=== PATIENT | female | born 1960 | race Caucasian/White ===

== ENCOUNTER 2016-10-19 15:41 | Emergency (ER) | payer OTHER ==
[~2016-10-19] VITALS: Wt 61.8 kg
[~2016-10-19 15:41] MED LIST: GABAPENTIN PO; VITAMIN B6; VITAMIN C; ZOLOFT
[2016-10-19] MEDS ORDERED: CIPR7.5D4 RIGHT EYE (16:35)
--- NOTE | 2016-10-19 16:46 | ERD ---
ER Documentation Chief Complaint Date/Time DATE: 10/19/16 TIME: 16:36 Chief Complaint r. eye redness, swollen HPI 55-year-old female with a history of liver cirrhosis presents the emergency department for complaints of right-sided eye pain 3 days. Patient states she initially felt a bump to the right upper eyelid which gradually became erythematous and swollen. Patient denies any discharge, change in vision, crusting, fever, chills, nausea, vomiting, headache. She reports a sharp 8 out of 10 pain worse with pressure to the area which is constant and improved slightly with warm compress and Motrin. She denies any recent illness. ROS All systems reviewed and are negative except as per history of present illness. Medications Home Meds Active Scripts Ciprofloxacin Hcl/Dexameth (Ciprodex Otic Suspension) 7.5 Ml Drops.susp, 4 DROP RIGHT EYE BID for 7 Days, EA Prov:RENAN CLAY PA-C 10/19/16 Reported Medications [Vitamin C] No Conflict Check 11/13/15 [Zoloft] No Conflict Check 11/13/15 [Vitamin B6] No Conflict Check 11/13/15 [Gabapentin] No Conflict Check, 100 MG PO 11/13/15 Allergies Allergies: Coded Allergies: No Known Allergy (Unverified , 07/14/13) PMhx/Soc History of Surgery: Yes (HYSTERECTOMY) Anesthesia Reaction: No Hx Neurological Disorder: No Hx Respiratory Disorders: No Hx Cardiac Disorders: No Hx Psychiatric Problems: No Hx Miscellaneous Medical Probl: Yes (hepatitis C, cirrhosis of liver, portal HTN) Hx Alcohol Use: No Hx Substance Use: No Hx Tobacco Use: Yes (2 CIGARETTES PER DAY) Smoking Status: Current every day smoker Physical Exam Vitals Vital Signs Date Time Temp Pulse Resp B/P Pulse Ox O2 Delivery O2 Flow Rate FiO2 10/19/16 15:45 98.1 73 20 127/80 98 Physical Exam Const: Well-developed, well-nourished, no acute distress Head: Atraumatic Eyes: Right-sided upper eyelid swelling and erythema with tenderness to palpation. 0.5 cm well-circumscribed area of swelling located on the lateral inner upper eyelid. no orbital erythema. No proptosis. EOMs intact. PERRLA. No discharge. Mild periorbital erythema without swelling. ENT: Normal External Ears, Nose and Mouth. Neck: Full range of motion..~ No meningismus. Resp: Clear to auscultation bilaterally Cardio: Regular rate and rhythm, no murmurs Skin: No petechiae or rashes Neur: Awake and alert Psych: Normal Mood and Affect Procedures/MDM This is a 55-year-old female with a history of liver cirrhosis who presents for a 3 day history of right upper eyelid pain, erythema, and swelling. Patient without complaint of vision changes, discharge, fever, headache, nausea or vomiting. Vital signs reviewed. Patient afebrile, normotensive and non- hypoxic upon arrival. Patient well-appearing, well-nourished, and nontoxic. Physical exam with evidence of swelling along the right inner upper eyelid, consistent with a right upper eyelid hordeolum. Low suspicion for orbital or periorbital cellulitis at this time. Low suspicion for ulceration or abrasion of the cornea. Patient to continue warm compress and will be provided with an antibacterial and anti-inflammatory eyedrops. Patient to follow-up with facialist if symptoms do not subside. Based on patient's history of present illness and physical examination the decision was made to discharge. There is no evidence of life threatening injuries or illnesses at this time. Patient resting in no distress, stable vital signs, reports feeling better and safe for discharge with outpatient follow up with PMD in 1-2 days. Patient given return precautions. Departure Diagnosis: Primary Impression: Swelling of right eyelid Additional Impressions: Sty, internal Laterality: right Eyelid: upper Qualified Code: H00.021 - Hordeolum internum of right upper eyelid Pain, eye, right Condition: Good Patient Instructions: Remington Padilla Additional Instructions: Call your primary care doctor TOMORROW for an appointment during the next 1-2 days.See the doctor sooner or return here if your condition worsens before your appointment time. RENAN CLAY PA-C Oct 19, 2016 16:45
== END 2016-10-19 17:21 | disposition home or self-care (01) ==
LOC: FTE 15:41
DX: H00.021 Hordeolum internum right upper eyelid (principal); F17.210 Nicotine dependence, cigarettes, uncomplicated
CPT/HCPCS: 99283

== ENCOUNTER 2017-01-23 10:03 | Emergency (ER) | payer OTHER ==
[~2017-01-23] VITALS: Ht 152.4 cm; Wt 67.0 kg
[~2017-01-23 10:03] MED LIST changes: +CIPR7.5D4 RIGHT EYE
[2017-01-23 10:04] VITALS: Ht 152.4 cm; Wt 67.0 kg
[2017-01-23] MEDS ORDERED: ALBUTEROL 0.083% (NEB) 2.5 MG/3 ML AMP HHN STA (10:48)
[2017-01-23] MEDS ORDERED: ALBU18HF INHALATION (11:10)
[2017-01-23] MEDS ORDERED: AZIT250T94 PO (11:10)
--- NOTE | 2017-01-23 11:24 | ERD ---
ER Documentation Chief Complaint Date/Time DATE: 01/23/17 TIME: 11:11 Chief Complaint cough x 3 weeks HPI This 56-year-old female presents with her intermittently productive cough for last 3 weeks. She may have it fevers over the last week. She denies chest pain , shortness breath, vomiting. She has had similar episodes in the past and is requesting an inhaler. ROS All systems reviewed and are negative except as per history of present illness. Medications Home Meds Active Scripts Albuterol Sulfate* (Ventolin HFA*) 18 Gm Hfa.aer.ad, 2 PUFF INHALATION Q4H, #1 INHALER Prov:MARY TREJO MD 01/23/17 Azithromycin* (Zithromax*) 250 Mg Tablet, 250 MG PO .ZPACK DIRECTED, #6 TAB TAKE 500 MG (2 TABS) THE FIRST DAY THEN 250 MG (1 TAB) DAYS 2-5 Prov:MARY TREJO MD 01/23/17 Ciprofloxacin Hcl/Dexameth (Ciprodex Otic Suspension) 7.5 Ml Drops.susp, 4 DROP RIGHT EYE BID for 7 Days, EA Prov:RENAN CLAY PA-C 10/19/16 Reported Medications [Vitamin C] No Conflict Check 11/13/15 [Zoloft] No Conflict Check 11/13/15 [Vitamin B6] No Conflict Check 11/13/15 [Gabapentin] No Conflict Check, 100 MG PO 11/13/15 Allergies Allergies: Coded Allergies: No Known Allergy (Unverified , 07/14/13) PMhx/Soc History of Surgery: Yes (HYSTERECTOMY) Anesthesia Reaction: No Hx Neurological Disorder: No Hx Respiratory Disorders: No Hx Cardiac Disorders: No Hx Psychiatric Problems: No Hx Miscellaneous Medical Probl: Yes (hepatitis C, cirrhosis of liver, portal HTN) Hx Alcohol Use: No Hx Substance Use: No Hx Tobacco Use: Yes (2 CIGARETTES PER DAY) Smoking Status: Current every day smoker Physical Exam Vitals Vital Signs Date Time Temp Pulse Resp B/P Pulse Ox O2 Delivery O2 Flow Rate FiO2 01/23/17 11:00 85 18 97 21 01/23/17 10:04 98.1 74 18 138/65 99 Physical Exam Const: [], Not ill-appearing. Head: Atraumatic Eyes: Normal Conjunctiva ENT: Normal External Ears, Nose and Mouth. Neck: Full range of motion..~ No meningismus. Resp: Clear to auscultation bilaterally with slight rhonchi without rales, wheezing or retractions. Cardio: Regular rate and rhythm, no murmurs Abd: Soft, non tender, non distended. Normal bowel sounds Skin: No petechiae or rashes Back: No midline or flank tenderness Ext: No cyanosis, or edema Neur: Awake and alert Psych: Normal Mood and Affect Results 24 hrs Current Medications Medications (Trade) Dose Ordered Sig/Vika Route PRN Reason Start Time Stop Time Status Last Admin Dose Admin Albuterol (Proventil 0.083% (Neb)) 2.5 mg ONCE STAT HHN 01/23/17 10:48 01/23/17 10:49 DC 01/23/17 10:59 Procedures/MDM She declines a chest x-ray due to time constraints Albuterol treatment 1. Patient felt better after observation treatment without evidence of hypoxemia or respiratory distress. She will treated with Zithromax and Ventolin and primary care follow-up and return precautions. The patient was stable with no new complaints during the ER course. Clinically, there is no current evidence to suggest meningitis, sepsis, acute abdomen, pneumonia, acute coronary syndrome, pulmonary embolism, or any other emergent condition appearing to require further evaluation or hospitalization. The patient should certainly return for any new or worsening symptoms per the aftercare instructions. They should otherwise follow-up with her primary care doctor for reevaluation this week. Departure Diagnosis: Primary Impression: URI, acute Condition: Stable Patient Instructions: Bronchitis With Wheezing (Adult) Additional Instructions: Recheck for new or worsening symptoms with primary care doctor. MARY TREJO MD Jan 23, 2017 11:12
== END 2017-01-23 11:25 | disposition home or self-care (01) ==
LOC: FTE 10:03
DX: J06.9 Acute upper respiratory infection, unspecified (principal); F17.210 Nicotine dependence, cigarettes, uncomplicated
CPT/HCPCS: 94664; Z7502; Z7610

== ENCOUNTER 2017-06-02 11:33 | Day surgery (SDC) | END 2017-06-02 14:43 | disposition home or self-care (01) ==